=== PATIENT | male | born 1985 | race Two or more races ===

== ENCOUNTER 2021-04-04 21:08 | Emergency (ER) | payer SELFPAY ==
[~2021-04-04] VITALS: Ht 180.3 cm; Wt 99.8 kg
[2021-04-04 21:27] VITALS: BP 157/88
== END 2021-04-04 21:54 | disposition left against medical advice (07) ==
LOC: EDBD 21:08 → ER 21:11 → EDBD 21:11 → ER 21:54
DX: R41.82 Altered mental status, unspecified (principal); F19.10 Other psychoactive substance abuse, uncomplicated; Z53.29 Procedure and treatment not carried out because of patient's decision for other reasons

== ENCOUNTER 2021-06-04 17:04 | Emergency (ER) | payer SELFPAY ==
[~2021-06-04] VITALS: Ht 177.8 cm; Wt 104.3 kg
[2021-06-04 17:10] VITALS: BP 156/85
== END 2021-06-04 17:14 | disposition left against medical advice (07) ==
LOC: ER 17:04
DX: I10 Essential (primary) hypertension (principal)